=== PATIENT | male | born 1965 | race African-American/Black ===

== ENCOUNTER 2022-01-30 08:42 | Emergency (ER) | payer OTHER ==
[~2022-01-30] VITALS: Ht 180.3 cm; Wt 82.0 kg
[2022-01-30] MEDS ORDERED: LORAZEPAM 0.5MG TABLET PO ONE (09:15)
[2022-01-30] MEDS ORDERED: KETOROLAC 60MG/2ML VIAL IM ONE ×2 (09:15→10:30)
[2022-01-30] MEDS ORDERED: ONDANSETRON 4MG ODT PO ONE (09:45)
[2022-01-30] MEDS ORDERED: METH-653 MT (10:27)
[2022-01-30] MEDS ORDERED: IBUP-2029 MT (10:27)
[2022-01-30 10:40] VITALS: BP 136/80
== END 2022-01-30 10:50 | disposition home or self-care (01) ==
LOC: ER 09:29
DX: M25.511 Pain in right shoulder (principal); M54.50 Low back pain, unspecified; R07.89 Other chest pain
CPT/HCPCS: 71045; 73030; 96372; 99284; J1885; Q0162